=== PATIENT | male | born 1955 | race Caucasian/White ===

== ENCOUNTER → 2019-01-26 | Outpatient (CLI) | payer OTHER, MEDICARE ==
[2019-01-26 10:29] LABS: Basophils # (auto) 0.1 uL; Basophils % (auto) 1.2 % (0.0-2.0); Eosinophils # (auto) 0.1 uL; Eosinophils % (auto) 1.4 % (0.0-7.0); Hematocrit 47.7 % (41.0-53.0); Hemoglobin 16.4 g/dL (13.5-17.5); Lymphocytes % (auto) 30.1 % (10.0-50.0); Mean Corpuscular Hemoglobin 32.2 pg (28.0-32.0); Mean Corpuscular Hgb Conc. 34.3 g/dL (32.0-36.0); Mean Corpuscular Volume 93.7 fL (80.0-100.0); Monocytes # (auto) 0.5 uL; Monocytes % (auto) 7.8 % (0.0-12.0); Neutrophils % (auto) 59.5 % (37.0-80.0); Nucleated Red Blood Cells % 0.1 %; Platelet Count (auto) 335 10^3/uL (140-450); Red Blood Cells 5.09 10^6/uL (4.5-5.90); Red Cell Distribution Width 12.9 % (11.8-14.3); White Blood Cell 6.7 10^3/uL (4.4-10.8)
[2019-01-26 10:40] LABS: Urine Bacteria NONE SEEN /hpf (None Seen); Urine Blood Negative /uL (Negative); Urine WBC <1 /hpf (0 - 3)
[2019-01-26 11:04] LABS: Potassium 3.8 mmol/L (3.5-5.1)
[2019-01-26 11:08] LABS: Prostate Specific Antigen 0.54 ng/mL (0.0-4.0)
[2019-01-26 11:09] LABS: Folate (Folic Acid) 19.47 ng/mL (5.38-24); Hepatitis B Surface Antibody Positive
[2019-01-26 11:33] LABS: Albumin 4.9 g/dL (3.4-5.0); BUN/Creatinine Ratio 20.7; Bilirubin, Total 0.5 mg/dL (0.2-1.0); CRP High Sensitivity 0.06 mg/dL (< 0.3); Calcium 9.3 mg/dL (8.5-10.1); Total Protein 9.2 g/dL (6.4-8.2); Uric Acid 5.1 mg/dL (3.5-7.2)
[2019-01-26 11:47] LABS: Hepatitis A Total Antibody Positive
== END | disposition home or self-care (01) ==
LOC: LAB 09:21
PROVIDERS: ATTEND Nurse Practitioner
DX: E78.5 Hyperlipidemia, unspecified (principal)
CPT/HCPCS: 36415; 80053; 80061; 81001; 82306; 82607; 82746; 83036; 84153; 84443; 84550; 85025; 85652; 86141; 86703; 86704; 86706; 86708; 86803; 87340; 87591

== ENCOUNTER → 2019-02-02 | Outpatient (CLI) | payer OTHER, MEDICARE | END | disposition home or self-care (01) | LOC: LAB 08:48 | PROVIDERS: ATTEND Nurse Practitioner | DX: E78.5 Hyperlipidemia, unspecified (principal) | CPT/HCPCS: 82270 ==

== ENCOUNTER → 2019-09-21 | Outpatient (CLI) | payer MEDICARE, OTHER ==
[2019-09-21 09:11] LABS: Basophils # (auto) 0.1 uL; Eosinophils # (auto) 0.2 uL; Eosinophils % (auto) 3.1 % (0.0-7.0); Hematocrit 45.1 % (41.0-53.0); Hemoglobin 15.2 g/dL (13.5-17.5); Lymphocytes # (auto) 2.8 uL; Lymphocytes % (auto) 38.5 % (10.0-50.0); Mean Corpuscular Hemoglobin 31.9 pg (28.0-32.0); Mean Corpuscular Hgb Conc. 33.7 g/dL (32.0-36.0); Mean Corpuscular Volume 94.5 fL (80.0-100.0); Monocytes # (auto) 0.6 uL; Monocytes % (auto) 8.6 % (0.0-12.0); Neutrophils # (auto) 3.5 uL; Neutrophils % (auto) 48.8 % (37.0-80.0); Platelet Count (auto) 280 10^3/uL (140-450); Red Blood Cells 4.78 10^6/uL (4.5-5.90); Red Cell Distribution Width 12.7 % (11.8-14.3); White Blood Cell 7.2 10^3/uL (4.4-10.8)
[2019-09-21 09:18] LABS: Urine Bacteria NONE SEEN /hpf (None Seen); Urine Blood Negative /uL (Negative); Urine Specific Gravity 1.026 (1.001-1.035); Urine WBC 1 /hpf (0 - 3)
[2019-09-21 09:58] LABS: Albumin 4.3 g/dL (3.4-5.0); BUN/Creatinine Ratio 26.7; Bilirubin, Total 0.7 mg/dL (0.2-1.0); Calcium 9.3 mg/dL (8.5-10.1); Potassium 4.1 mmol/L (3.5-5.1)
== END | disposition home or self-care (01) ==
LOC: LAB 08:51
PROVIDERS: ATTEND Nurse Practitioner
DX: E78.5 Hyperlipidemia, unspecified (principal); R79.89 Other specified abnormal findings of blood chemistry
CPT/HCPCS: 36415; 80053; 80061; 81001; 83036; 84443; 85025

== ENCOUNTER → 2022-12-26 | Day surgery (SDC) | payer MEDICARE, OTHER ==
[2022-12-25 11:09] LABS: Basophils # (auto) 0.1 10 ^3/uL (0-0.2); Eosinophils # (auto) 0.1 10 ^3/uL (0-0.8); Eosinophils % (auto) 1.9 % (0.0-7.0); Hematocrit 45.7 % (41.0-53.0); Hemoglobin 15.8 g/dL (13.5-17.5); Lymphocytes # (auto) 2.2 10 ^3/uL (0.4-5.4); Lymphocytes % (auto) 32.4 % (10.0-50.0); Mean Corpuscular Hemoglobin 32.2 pg (28.0-32.0); Mean Corpuscular Hgb Conc. 34.6 g/dL (32.0-36.0); Mean Corpuscular Volume 93.2 fL (80.0-100.0); Monocytes # (auto) 0.6 10 ^3/uL (0-1.3); Monocytes % (auto) 8.9 % (0.0-12.0); Neutrophils # (auto) 3.8 10 ^3/uL (1.6-8.6); Neutrophils % (auto) 55.8 % (37.0-80.0); Nucleated Red Blood Cells % 0.1 %; Red Cell Distribution Width 13.1 % (11.8-14.3); Urine WBC None Seen /hpf (0 - 3); White Blood Cell 6.8 10^3/uL (4.4-10.8)
[2022-12-25 11:17] LABS: Urine Bacteria NONE SEEN /hpf (None Seen); Urine Blood Negative /uL (Negative)
[2022-12-25 11:26] LABS: INR 0.99 (0.9-1.15); Partial Thromboplastin Time 25.6 sec (24.6-33.4)
[2022-12-25 11:45] LABS: Albumin 4.4 g/dL (3.4-5.0); Calcium 9.3 mg/dL (8.5-10.1); Potassium 3.9 mmol/L (3.5-5.1)
[2022-12-25 11:48] LABS: BUN/Creatinine Ratio 18.5; Bilirubin, Total 0.5 mg/dL (0.2-1.0)
[~2022-12-26] VITALS: Ht 182.9 cm; Wt 85.3 kg
[~2022-12-26] MED LIST: ATOR10TA PO; DexAMETHasone SOD PHOS 10MG/1ML VIAL INJ ONE; LABETALOL HCL 5 MG/ML 4ML SYRINGE IV PRN; LIDOCAINE W/ EPINEPHRINE 1% 20ML VIAL ONE; LIDOCAINE W/ EPINEPHRINE 2% INJ 20ML VIAL ONE; LISI20TA28 PO; MEPERIDINE HCL (50 MG/ML) 1 ML VIAL ONE; MIDAZOLAM HCL 2MG/2ML 2ml VIAL (1mg/ml) IV PRN; MIDAZOLAM HCL 2MG/2ML 2ml VIAL (1mg/ml) ONE; MORPHINE SULFATE 4 MG/ML SYR/VIAL IV PRN; OMEP20TA PO; ONDANSETRON HCL 4 MG/2 ML VIAL IV PRN; PROPOFOL 10 MG/ML 20 ML IV ONE; ceFAZolin 1GM/50ML 100 ML IV ONE; ePHEDrine SULFATE 50 MG/ML AMP IV PRN; fentaNYL CITRATE 100 MCG/2 ML VL ONE
[2022-12-26] MEDS: HYDROmorphone HCL 2 MG/ML VL/or syr IV PRN ×3 (11:09→11:57)
[2022-12-26 12:20] VITALS: BP 172/90
== END | disposition home or self-care (01) ==
LOC: SUR 07:35
PROVIDERS: ATTEND Surgery
DX: K40.90 Unilateral inguinal hernia, without obstruction or gangrene, not specified as recurrent (principal); I13.10 Hypertensive heart and chronic kidney disease without heart failure, with stage 1 through stage 4 chronic kidney disease, or unspecified chronic kidney disease; N18.2 Chronic kidney disease, stage 2 (mild); E78.5 Hyperlipidemia, unspecified; K21.9 Gastro-esophageal reflux disease without esophagitis; Z87.891 Personal history of nicotine dependence; Z85.828 Personal history of other malignant neoplasm of skin; Z98.890 Other specified postprocedural states; Z20.822 Contact with and (suspected) exposure to COVID-19; Z01.812 Encounter for preprocedural laboratory examination; Z79.899 Other long term (current) drug therapy
CPT/HCPCS: 36415; 49505; 80053; 81001; 85025; 85610; 85730; 86850; 86900; 86901; 88302; C1781; J0690; J1100; J1170; J2175; J2250; J2704; J3010; U0003